=== PATIENT | male | born 1960 | race Caucasian/White ===

== ENCOUNTER 2024-08-22 14:53 | Emergency (ER) | payer MEDICARE, SELFPAY ==
--- NOTE | 2024-08-22 14:45 | RT.EKG_ITS ---
APPROVED REPORT Exam: Resting ECG Reason for Exam: dizziness, elevated bp Patient Location: E HR:63 bpm ECG Measurements Heart Rate 63 AXIS NV 176 P 73 QRSd 92 QRS 87 QT 405 T 56 QTc 416 Conclusion Sinus rhythm 63 normal axis no stemi
[2024-08-22 14:57] VITALS: BP 115/73; PULSE 74; RESP 16; TEMP 36.6; O2SAT 94
[2024-08-22] MEDS: Normal Saline 1,000 ML 1000 ML IV (16:47)
[2024-08-22 16:48] VITALS: BP 116/72; BP 119/70; BP 124/81; PULSE 68; PULSE 74; PULSE 80
[2024-08-22 16:49] LABS: Abs Immature Grans 0.01 10^3/uL (0.0-0.06); HCT 40.9 % (40.0-50.0); HGB 13.8 g/dL (13.5-17.5); Immature Grans % 0.2 %; MCH 30.9 pg (27.0-33.0); MCHC 33.7 % (32.0-36.0); MCV 92 fL (80-95); MPV 11.2 fL (8.0-11.0); Platelet Count 142 10^3/uL (130-400); RBC 4.46 10^6/uL (4.36-5.78); RDW 12.6 % (11.8-14.1); RDW-SD 41.8 fL; WBC 5.07 10^3/uL (4.4-10.8)
--- NOTE | 2024-08-22 16:59 | W.ED.GENAD ---
Discharge Plan Discharge Details Chief Complaint: Dizzy/Sync Primary Care Provider: None,None ED Provider: Manfred Og Home Meds and New Rx's Prescriptions: No Action levothyroxine 175 MCG tablet 125 mcg PO DAILY@729 citalopram [Celexa] 40 MG tablet 40 mg PO DAILY fluoxetine [Prozac] 10 mg capsule 10 mg PO DAILY atorvastatin [Lipitor] 20 mg tablet 20 mg PO QHS allopurinol 100 mg tablet 300 mg PO DAILY colchicine 0.6 mg capsule 0.6 mg PO PRN HPI General Date/Time Provider Initiated Documentation: 08/22/24 15:10. Limitations to Documentation: no limitations. Information obtained by: patient. HPI Narrative: 64-year-old gentleman with past medical history of hypothyroid, hyperlipidemia, gout presents for evaluation of high blood pressure. He reports that he has been taking his blood pressure at home today and his readings were in the systolic 130s, 1 reading was 140. He does not take medicine for blood pressure. He reports that he has been working outside all day in his garden mowed the grass using his tractor. He reports that after this, he noted that he felt very dizzy. He has not taken any medication for this. He reports that he is drinking water, he is unsure if he is urinated today. He reports that back in January he had a similar episode of dizziness for which she went to the hospital. He reports that he had imaging and lab work at that time and was diagnosed with vertigo and prescribed meclizine which she does not take because even though it makes him feel better, he is not sure why he will continue to get dizzy. Related Data Home Medications ?Medication ?Instructions ?Recorded ?Confirmed citalopram 40 mg tablet (Celexa) 40 mg PO DAILY 08/20/13 08/22/24 Held on 08/22/24. Instructions: Changed by Provider levothyroxine 175 mcg tablet 125 mcg PO DAILY@72908/20/13 08/22/24 allopurinol 100 mg tablet 300 mg PO DAILY 08/22/24 08/22/24 atorvastatin 20 mg tablet (Lipitor) 20 mg PO QHS 08/22/24 08/22/24 colchicine 0.6 mg capsule 0.6 mg PO PRN 08/22/24 08/22/24 fluoxetine 10 mg capsule (Prozac) 10 mg PO DAILY 08/22/24 08/22/24 Allergies Allergy/AdvReac Type Severity Reaction Status Date / Time No Known Allergies Allergy Unverified 08/22/24 15:01 General Stated Complaint: Dizzy/Sync KENNETH: 3 Exam Narrative Exam Narrative: Review of Systems: All systems reviewed & are unremarkable except as noted in HPI and below Well-developed, no acute distress NCAT PERRL, normal conjunctiva no nystagmus RRR no murmur Unlabored respiratory effort clear bilaterally Nondistended abdomen soft nontender no focal neurologic deficits, normal [id number] normal gait Appropriate mood and affect Course Vital Signs Vital signs: Vital Signs Temperature 36.6 C 08/22/24 14:57 Pulse 74 08/22/24 14:57 Respiratory Rate 16 08/22/24 14:57 Blood Pressure 115/73 08/22/24 14:57 Pulse Oximetry 94 08/22/24 14:57 Temperature 36.6 C 08/22/24 14:57 Temperature Source Oral 08/22/24 14:57 Pulse 68 08/22/24 16:48 Respiratory Rate 16 08/22/24 14:57 Respiratory Effort Normal 08/22/24 16:49 Respiratory Depth Normal 08/22/24 16:49 Respiratory Pattern Normal 08/22/24 16:49 Blood Pressure 116/72 08/22/24 16:48 Pulse Oximetry 94 08/22/24 14:57 Oxygen Delivery Method Room Air 08/22/24 14:57 Oxygen Flow Rate 0 08/22/24 14:57 Lab/Test Results Lab/Test Results: Laboratory Tests Range/Units 08/22/24 16:44 WBC (4.4-10.8) 10^3/uL 5.07 RBC (4.36-5.78) 10^6/uL 4.46 Hgb (13.5-17.5) g/dL 13.8 Hct (40.0-50.0) % 40.9 MCV (80-95) fL 92 MCH (27.0-33.0) pg 30.9 MCHC (32.0-36.0) % 33.7 RDW (11.8-14.1) % 12.6 Plt Count (130-400) 10^3/uL 142 MPV (8.0-11.0) fL 11.2 H Immature Gran % % 0.2 Neutrophils % % 54.7 Lymphocytes % % 32.7 Monocytes % % 6.3 Eosinophils % % 4.9 Basophils % % 1.2 Nucleated RBC % (0.0-0.3) % 0.0 Absolute Neutrophils (1.2-6.7) 10^3/uL 2.77 Absolute Lymphocytes (1.2-3.4) 10^3/uL 1.66 Absolute Monocytes (0.1-0.8) 10^3/uL 0.32 Absolute Eosinophils (0.0-0.7) 10^3/uL 0.25 Absolute Basophils (0.0-0.2) 10^3/uL 0.06 Medical Decision Making Emergent evaluation of dizziness. I have reviewed the patient's home documentation of his blood pressure and this is all within normal limits. Patient disagrees. States that his blood pressure is high for him. Orthostatic vital signs reveal some change, but not significant. I suspect that his dizziness may have something to do with being outside working in the heat all day. He has no neurologic deficits, no concerning signs or symptoms for a central process of this dizziness. Patient will have blood work checked as well as be given IV fluids. Final disposition pending lab work and reassessment turned over to oncoming provider. [facility] Social History Smoking/Tobacco Use Status: Never Smoking risk assessment performed?: Yes Alcohol Intake: current Alcohol Intake frequency: a few times a week Drug use: Occasionally Substance use type: marijuana
[2024-08-22 17:12] LABS: ALT 39 U/L (16-63); AST 28 U/L (15-37); Albumin 3.8 g/dL (3.4-5.0); Alkaline Phosphatase 83 U/L (46-116); Anion Gap 7.5 mmol/L (3-11); BUN 17 mg/dL (7-18); Bilirubin, Total 0.6 mg/dL (0.2-1.0); CO2 28.5 mmol/L (21.0-32.0); Calcium 9.1 mg/dL (8.5-10.1); Chloride 106 mmol/L (98-107); Creatine Kinase 114 U/L (39-308); Estimated GFR 94.19 (mL/min/1.73m2); Glucose 100 mg/dL (74-106); Magnesium 2.1 mg/dL (1.8-2.4); Potassium 3.9 mmol/L (3.5-5.1); Sodium 142 mmol/L (136-145); TSH (W/Ref FT4) 1.60 uIU/mL (0.36-3.74); Total Protein 7.1 g/dL (6.4-8.2); Uric Acid 4.5 mg/dL (3.5-7.2)
[2024-08-22] MEDS: Meclizine 25 MG TAB PO (17:27)
[2024-08-22 18:14] VITALS: BP 118/70; PULSE 72; RESP 16; TEMP 36.6; O2SAT 96
== END 2024-08-22 18:18 | disposition home or self-care (01) ==
LOC: ER 16:57
PROVIDERS: Emergency Provider Emergency Medicine
DX: R42 Dizziness and giddiness (principal); I10 Essential (primary) hypertension; E78.5 Hyperlipidemia, unspecified; E03.9 Hypothyroidism, unspecified
CPT/HCPCS: 80053; 82550; 93005; 96360; 99284; 83735; 84443; 84550; 85025; 93010